=== PATIENT | female | born 1955 | race Caucasian/White ===

== ENCOUNTER 2023-10-02 11:59 | Emergency (ER) | payer OTHER, SELFPAY ==
[2023-10-02 12:02] VITALS: BP 136/87
[2023-10-02 13:03] VITALS: BMI 32.2
[2023-10-02 13:03] LABS: % Basophils 0.4 % (0-2); % Eosinophils 1.5 % (0-6); % Immature Granulocytes 0.3 % (0-0.5); % Monocytes 8.1 % (1.7-9.3); % Neutrophils 66.7 % (42.2-75.2); Absolute Basophils 0.1 10^3/uL (0-0.2); Absolute Eosinophils 0.2 10^3/uL (0-0.7); Absolute Lymphocytes 3.1 10^3/uL (1.2-3.4); Absolute Monocytes 1.1 10^3/uL (0.1-0.6); Absolute Neutrophils 9.1 10^3/uL (1.4-6.5); Hematocrit 37.7 % (37.0-47.0); Mean Corp Hgb Conc. 34.5 g/dL (33.0-37.0); Mean Corpuscular Hgb 31.4 pg (27.0-31.0); Mean Corpuscular Volume 91.1 fL (81.0-99.0); Nucleated Red Blood Cells % 0 %; Red Blood Cell Count 4.14 10^6/uL (4.20-5.40); Red Cell Dist. Width 12.6 % (11.5-14.5); White Blood Cell Count 13.7 10^3/uL (4.8-10.8)
[2023-10-02 13:05] LABS: Urine Albumin Negative (Neg - Trace); Urine Bilirubin 1+ (Negative); Urine Character Clear (Clear); Urine Color Yellow; Urine Glucose Negative (Negative); Urine Ketone Negative (Negative); Urine Leukocyte Negative (Negative); Urine Nitrite Negative (Negative); Urine Occult Blood 1+ (Negative); Urine Urobilinogen Negative (Neg - 1+)
[2023-10-02 13:23] LABS: Lactic Acid 0.7 mmol/L (0.7-2.0)
[2023-10-02 13:52] LABS: Urine Red Blood Cell 0-2 /HPF (0-2)
[2023-10-02 13:53] LABS: Mean Platelet Volume 9.7 fL (7.4-10.4); Platelet Count 258 10^3/uL (130-400)
[2023-10-02 14:16] LABS: ALT (SGPT) 17 U/L (0-35); AST (SGOT) 28 U/L (14-36); Albumin 3.9 g/dl (3.5-5.0); Alkaline Phosphatase 77 U/L (38-126); Blood Urea Nitrogen 15 mg/dl (7-17); Carbon Dioxide 26 mmol/L (22-30); Chloride 104 mmol/L (98-107); Estimated Creatinine Clearance 72 ml/min; Glucose 92 mg/dl (70-99); Lipase 83 U/L (23-300); Potassium 4.2 mmol/L (3.5-5.1); Sodium 135 mmol/L (135-145); Total Bilirubin 0.8 mg/dl (0.2-1.3); Total Protein 6.8 g/dl (6.3-8.2); eGFR > 60.00
--- NOTE | 2023-10-02 14:27 | ED.GENMED ---
History of Present Illness
<Cholo Ramirez DO - Last Filed: 10/02/23 14:58>
General
Chief Complaint: Abdominal Symptoms
Source: patient
Exam Limitations: none
Time Seen by Provider: 10/02/23 12:33
Travel History
Have you had any contact with someone who has COVID-19?: No
Do you have any symptoms of coronavirus? Fever > 100 degrees, chills, cough, shortness of breath, sore throat, loss of taste or smell, muscle aches, or headache?: No
History of Present Illness
History of Present Illness:
68-year-old female presents lower abdominal pain. Patient states she has had constipation since recently being on antibiotics and pain medicines. The patient states that she did have an episode on Tuesday where she vomited and also passed out. She
suspected it was just related to her pain. Pain has persisted. She is not sure if she is constipated no further vomiting. No fevers. Does have a little bit of low back pain. No dysuria. No hematochezia or melena
Past History
<Cholo Ramirez DO - Last Filed: 10/02/23 14:58>
Past History
ED Past Medical History: Hypercholesterolemia, Hypothyroidism and Psychiatric
ED Past Surgical History: and Orthopedic
Phy Exam
<Cholo Ramirez DO - Last Filed: 10/02/23 14:58>
Physical Exam
Physical Exam:
CONSTITUTIONAL Patient alert and oriented to person, place and time. Well-appearing. Vital signs reviewed.
HEAD atraumatic, normocephalic.
EYES eyelids normal to inspection, Pupils equally round and reactive to light, Extraocular muscles intact, Conjunctiva normal, Sclera normal.
NECK normal range of motion, Trachea midline, no jugular venous distention.
RESPIRATORY CHEST No respiratory distress noted, Chest expansion equal, Bilateral breath sounds clear.
CARDIOVASCULAR regular rate and rhythm, Heart sounds normal.
ABDOMEN moderate lower abdominal tenderness, moderate left lower quadrant tenderness.
BACK normal inspection, no obvious deformities
UPPER EXTREMITY range of motion normal, Motor strength normal, no cyanosis, no edema.
LOWER EXTREMITY range of motion normal, Motor strength normal, no cyanosis, no edema.
NEURO Speech normal, No focal motor deficits, Clarisse coma scale 15, Memory normal, Cranial Nerves intact to screening exam.
SKIN skin warm, dry, and normal in color.
PSYCHIATRIC patient oriented to person place and time, Normal affect.
Course
<Cholo Ramirez, DO - Last Filed: 10/02/23 14:58>
Orders/Labs/Results
Orders:
Orders
10/02/23 12:45
CT Abd/pelvis W Iv Cont Urgent
Comment:
Reason For Exam: lower abd pain
10/02/23 12:53
Complete Blood Count/With Diff Urgent
Lactic Acid Urgent
Urinalysis Reflex To Culture Urgent
Date Specimen was Collected: 10/02/23
Time Specimen was Collected: 12:44
Urine Microscopic Reflex Cult Urgent
10/02/23 13:45
Comprehensive Metabolic Panel Urgent
Lipase Urgent
10/02/23 16:18
Amoxicillin 875 mg/Clav 125 mg [Augmentin 875 mg/125 mg] 1 tablet PO NOW STA
Abnormal Lab Results
10/02/23
12:53
WBC 13.7 H 10^3/uL
(4.8-10.8)
RBC 4.14 L 10^6/uL
(4.20-5.40)
MCH 31.4 H pg
(27.0-31.0)
Absolute Neuts (auto) 9.1 H 10^3/uL
(1.4-6.5)
Absolute Monos (auto) 1.1 H 10^3/uL
(0.1-0.6)
Ur Occult Blood Reflex 1+ A
(Negative)
Urine Bilirubin 1+ A
(Negative)
10/02/23 12:53
10/02/23 13:45
Vital Signs
Initial and Last Documented VS:
Initial Vital Signs
Temp Pulse Resp BP Pulse Ox
98.4 F 97 16 136/87 98
10/02/23 12:02 10/02/23 12:02 10/02/23 12:02 10/02/23 12:02 10/02/23 12:02
Last Documented Vital Signs
Temp Pulse Resp BP Pulse Ox
98.4 F 86 16 107/63 96
10/02/23 12:02 10/02/23 15:10 10/02/23 12:02 10/02/23 15:10 10/02/23 15:10
<Connie Richardson MD - Last Filed: 10/02/23 16:21>
Orders/Labs/Results
Orders:
Orders
10/02/23 12:45
CT Abd/pelvis W Iv Cont Urgent
Comment:
Reason For Exam: lower abd pain
10/02/23 12:53
Complete Blood Count/With Diff Urgent
Lactic Acid Urgent
Urinalysis Reflex To Culture Urgent
Date Specimen was Collected: 10/02/23
Time Specimen was Collected: 12:44
Urine Microscopic Reflex Cult Urgent
10/02/23 13:45
Comprehensive Metabolic Panel Urgent
Lipase Urgent
10/02/23 16:18
Amoxicillin 875 mg/Clav 125 mg [Augmentin 875 mg/125 mg] 1 tablet PO NOW STA
Abnormal Lab Results
10/02/23
12:53
WBC 13.7 H 10^3/uL
(4.8-10.8)
RBC 4.14 L 10^6/uL
(4.20-5.40)
MCH 31.4 H pg
(27.0-31.0)
Absolute Neuts (auto) 9.1 H 10^3/uL
(1.4-6.5)
Absolute Monos (auto) 1.1 H 10^3/uL
(0.1-0.6)
Ur Occult Blood Reflex 1+ A
(Negative)
Urine Bilirubin 1+ A
(Negative)
10/02/23 12:53
10/02/23 13:45
Vital Signs
Initial and Last Documented VS:
Initial Vital Signs
Temp Pulse Resp BP Pulse Ox
98.4 F 97 16 136/87 98
10/02/23 12:02 10/02/23 12:02 10/02/23 12:02 10/02/23 12:02 10/02/23 12:02
Last Documented Vital Signs
Temp Pulse Resp BP Pulse Ox
98.4 F 86 16 107/63 96
10/02/23 12:02 10/02/23 15:10 10/02/23 12:02 10/02/23 15:10 10/02/23 15:10
<Cholo Ramirez DO - Last Filed: 10/02/23 14:58>
MDM/Problems Addressed
MDM/Problems Addressed:
Abdominal pain
<Cholo Ramirez DO - Last Filed: 10/02/23 14:58>
*Pulse Oximetry
Patient hypoxic: no
*Critical Care Note
Total Time (30-74mins, 75-104mins- exclusive of procedures): Not Applicable
<Connie Richardson MD - Last Filed: 10/02/23 16:21>
*Radiology
Radiology exam reviewed: radiology read reviewed
<Cholo Ramirez DO - Last Filed: 10/02/23 14:58>
Update Note
Update Note:
CT pending. Await results. Signed out to Dr. Richardson pending result
<Connie Richardson MD - Last Filed: 10/02/23 16:21>
Update Note
Update Note:
CT pending. Await results. Signed out to Dr. Richardson pending result
4:20pm patient appears well and nontoxic. CT shows uncomplicated acute diverticulitis. Patient agreeable to starting Augmentin. Patient understands to return with any worsening pain or fever. Patient encouraged to start a probiotic while on
Augmentin.
ED Attending Note
<Cholo Ramirez DO - Last Filed: 10/02/23 14:58>
-
Portions of this chart may have been created with voice recognition software.� Occasional wrong word or��sound alike� substitutions may have occurred due to the inherent limitations of voice recognition software.
Discharge Plan
Departure
Patient Disposition: Home (Routine Discharge)
Date of Disposition: 10/02/23
Time of Disposition: 16:18
Patient with high blood pressure during this ER visit?: No
Condition: Good
Covid-19: Not Applicable
Discharge Problem:
Acute diverticulitis
Instructions: Diverticulitis (DC)
Prescriptions:
New
amoxicillin-pot clavulanate 875-125 mg tablet
1 tab PO BID Qty: 19 0RF
Referrals:
Samia Jarquin MD [Family Provider] -
Activity Restrictions/Additional Instructions:
Follow-up with your primary care doctor within 3 to 5 days. Please take a probiotic while you are on the antibiotic.
Interventions
Interventions:
*Risk Screen - Suicide Last Done: 10/02/23 13:59
*General Assessment Last Done: 10/02/23 13:59
*Neglect/Abuse Screening Last Done: 10/02/23 13:59
ED- Fall Risk Assessment Last Done: 10/02/23 13:59
*ED COVID-19 Vaccine History Last Done: 10/02/23 12:02
HP-Aydjtr-Fzfowjvsuu Assessment Last Done: 10/02/23 14:01
[2023-10-02 15:10] VITALS: BP 107/63
[2023-10-02] MEDS: AUGMENTIN 875 MG/125 MG 1 TABLET PO (16:24)
[2023-10-02 16:30] VITALS: BP 103/65
== END 2023-10-02 16:43 | disposition home or self-care (01) ==
LOC: EMR 11:59
PROVIDERS: EMERGENCY PHYSICIAN Emergency Medicine; FAMILY PHYSICIAN Family Medicine
DX: K57.32 Diverticulitis of large intestine without perforation or abscess without bleeding (principal); R55 Syncope and collapse; R11.10 Vomiting, unspecified; E78.00 Pure hypercholesterolemia, unspecified; E03.9 Hypothyroidism, unspecified; Z88.1 Allergy status to other antibiotic agents
CPT/HCPCS: 99285; 74177; 80053; 81003; 81015; 83605; 83690; 85025; Q9967